=== PATIENT | male | born 1980 | race Caucasian/White ===

== ENCOUNTER 2021-03-11 09:35 | Emergency (ER) | payer OTHER, BC ==
[~2021-03-11] VITALS: Ht 175.3 cm; Wt 83.9 kg
[~2021-03-11 09:35] MED LIST: AUGMENTIN 875-1 EACH PO
[2021-03-11] MEDS ORDERED: OMEPRAZOLE20 MG PO (10:02)
== END 2021-03-11 11:06 | disposition home or self-care (01) ==
LOC: ED 09:35
DX: Z77.098 Contact with and (suspected) exposure to other hazardous, chiefly nonmedicinal, chemicals (principal); Z88.2 Allergy status to sulfonamides; Z79.899 Other long term (current) drug therapy
CPT/HCPCS: 99283